=== PATIENT | female | born 1985 | race Caucasian/White ===

== ENCOUNTER 2022-03-10 17:36 | Emergency (ER) | payer MEDICAID ==
[~2022-03-10] VITALS: Ht 172.7 cm; Wt 72.7 kg
[2022-03-10 17:43] VITALS: BP 110/92
[2022-03-10 19:04] LABS: URINE HCG NEGATIVE (NEG)
== END 2022-03-10 19:29 | disposition home or self-care (01) ==
LOC: ER 17:37
DX: N93.9 Abnormal uterine and vaginal bleeding, unspecified (principal)
CPT/HCPCS: 81025; 99283

== ENCOUNTER 2023-11-01 11:06 | Emergency (ER) | payer MEDICAID ==
[~2023-11-01] VITALS: Ht 172.7 cm; Wt 105.6 kg
[2023-11-01 11:29] VITALS: BP 135/78; PULSE 94; TEMP 98; O2SAT 96
[2023-11-01 12:07] LABS: BASOPHILS # (AUTO) 0.1 X10'3 (0-0.2); BASOPHILS % (AUTO) 0.7 % (0-1); EOSINOPHILS # (AUTO) 1.1 X10'3 (0-0.9); HEMATOCRIT 44.6 % (35.0-45.0); HEMOGLOBIN 15.2 g/dl (12.0-16.0); LYMPHOCYTES # (AUTO) 2.1 X10'3 (1.1-4.8); LYMPHOCYTES % (AUTO) 20.3 % (21-51); MEAN CORPUSCULAR HGB CONC 34.1 g/dL (33.0-36.5); MEAN CORPUSCULAR VOLUME 90.8 FL (78-98); MEAN PLATELET VOLUME 8.3 FL (7.4-10.4); MONOCYTES # (AUTO) 0.8 X10'3 (0-0.9); MONOCYTES % (AUTO) 7.3 % (2-12); NEUTROPHILS # (AUTO) 6.5 X10'3 (1.8-7.7); NEUTROPHILS % (AUTO) 61.7 % (42-75); PLATELET COUNT 334 X10'3 (140-440); RED BLOOD COUNT 4.91 X10'6 (4.20-5.60); RED CELL DISTRIBUTION WIDTH 13.7 % (11.5-14.5); WHITE BLOOD COUNT 10.5 X10'3 (4.5-11.0)
[2023-11-01 12:13] LABS: ALBUMIN 3.7 G/DL (3.4-5.0); ANION GAP 9 (8-16); BLOOD UREA NITROGEN 11 MG/DL (7-18); BUN/CREATININE RATIO 15.5 (10.0-20.0); CALCIUM 8.8 MG/DL (8.5-10.1); CHLORIDE 105 MMOL/L (99-107); CREATININE 0.71 MG/DL (0.40-0.90); GLUCOSE 101 MG/DL (70-104); POTASSIUM 4.1 MMOL/L (3.5-5.1); SODIUM 140 MMOL/L (135-145); TOTAL CARBON DIOXIDE 25.8 MMOL/L (24-32); eCRCL 106 ML/MIN; eGFR > 90 ML/MIN
[2023-11-01 12:15] LABS: URINE HCG NEGATIVE (NEG)
[2023-11-01 12:17] LABS: ETHANOL < 10 MG/DL (<10)
[2023-11-01 12:32] LABS: URINE AMPHETAMINE SCREEN NEGATIVE (Neg); URINE BARBITUATE SCREEN NEGATIVE (Neg); URINE BENZODIAZEPINES SCREEN NEGATIVE (Neg); URINE CANNABINOID SCREEN NEGATIVE (Neg); URINE COCAINE SCREEN NEGATIVE (Neg); URINE METHADONE SCREEN NEGATIVE (Neg); URINE OPIATE SCREEN NEGATIVE (Neg); URINE PHENCYCLIDINE SCREEN NEGATIVE (Neg)
[2023-11-01 14:50] VITALS: RESP 16
[2023-11-01 15:21] LABS: THYROID STIMULATING HORMONE 2.41 ulU/ml (0.34-4.50)
[2023-11-01] MEDS ORDERED: NO HOME MEDS (15:47)
[2023-11-01 16:03] LABS: BILIRUBIN,URINE NEGATIVE (Neg); CLARITY,URINE TURBID (Clear); COLOR,URINE YELLOW (Yellow); GLUCOSE, URINE NEGATIVE (Neg); KETONES,URINE TRACE mg/dl (Neg); LEUKOCYTE ESTERASE ,URINE NEGATIVE (Neg); NITRITES, URINE NEGATIVE (Neg); OCCULT BLOOD,URINE NEGATIVE (Neg); PROTEIN,URINE NEGATIVE (Neg); UROBILINOGEN,URINE 0.2 E.U/dL (0.2-1.0)
[2023-11-01 16:12] LABS: UA COLLECTION TYPE CLN CATCH MIDSTREAM
[2023-11-01 16:13] LABS: MUCUS STRANDS MODERATE /LPF (Neg)
[2023-11-01 16:14] LABS: AMORPHOUS PHOSPHATES 1+; TRIPLE PHOSPHATE CRYST 1+ /HPF (NEGATIVE)
[2023-11-01 16:15] LABS: BACTERIA,URINE FEW /HPF (Neg); RBC,URINE 0-2 /HPF (0-2); SQUAMOUS EPITHELIAL CELL,UR MANY /LPF (FEW); WBC,URINE 0-4 /HPF (0-4)
== END 2023-11-01 17:15 | disposition home or self-care (01) ==
LOC: ER 11:07
DX: F20.9 Schizophrenia, unspecified (principal); Z20.822 Contact with and (suspected) exposure to COVID-19; R44.0 Auditory hallucinations
CPT/HCPCS: 36415; 80048; 80305; 80320; 81001; 81025; 84443; 85025; 87811; 99284